=== PATIENT | female | born 1955 | race Caucasian/White ===

== ENCOUNTER → 2017-08-23 | Outpatient (CLI) | payer OTHER ==
[~2017-08-23] MED LIST: ASPI81CH PO; Coq-1030 MG; DHEA PO; ESTR2; FISH OIL 500 M1 EAC1 PO; LEVSOD75 PO; LIOT25 PO; LORA1SY PO; METF500 PO; PROGESTERO50 MG/1 ML; Prinivil10 MG PO; SACC250C; Slo-Niacin250 MG; VITAMIN D32000 UNIT
== END ==
LOC: LAB SHORT 14:00 → PLD 14:00
DX: D36.7 Benign neoplasm of other specified sites (principal)
CPT/HCPCS: 88305